=== PATIENT | male | born 1950 | race Caucasian/White ===

== ENCOUNTER 2018-08-19 14:35 | Emergency (ER) | payer MEDICARE ==
[~2018-08-19] VITALS: Ht 185.4 cm; Wt 114.5 kg
[2018-08-19 14:46] VITALS: Ht 185.4 cm; Wt 114.5 kg
[2018-08-19 15:16] LABS: BASOPHILS 0.3 % (0-2); EOSINOPHILS 2.3 % (0-7); HEMATOCRIT 43.3 % (42.0-54.0); HEMOGLOBIN 14.9 g/dL (13.5-17.5); IMMATURE GRANULOCYTES 0.3 % (0-5); LYMPHOCYTES 30.2 % (15-50); MCH 31.2 pg (26.0-34.0); MCHC 34.4 g/dL (31.0-37.0); MCV 90.6 fL (80.0-100.0); MEAN PLATELET VOLUME 9.2 fL (7.4-10.4); MONOCYTES 9.6 % (2-11); NEUTROPHILS 57.3 % (40-80); PLATELET COUNT 246 10x3/uL (130-400); RBC 4.78 10x6/uL (4.20-6.10); RDW 13.9 % (11.5-14.5); WBC 8.9 10x3/uL (4.8-10.8)
[2018-08-19 15:34] LABS: APTT 27.5 SECONDS (22.8-39.4); INR 1.08 (0.85-1.17); PROTIME 13.5 SECONDS (11.6-15.0)
[2018-08-19 15:36] LABS: ALBUMIN 3.2 g/dL (3.4-5.0); ALKALINE PHOSPHATASE 122 U/L (46-116); ALT (SGPT) 99 U/L (10-68); BILIRUBIN - TOTAL 0.35 mg/dL (0.2-1.3); CALC OSMOLALITY 284 mosm/kg (275-300); CALCIUM 8.9 mg/dL (8.5-10.1); CARBON DIOXIDE 27.6 mmol/L (21.0-32.0); CHLORIDE - SERUM 106 mmol/L (98-107); CREATININE - SERUM 0.8 mg/dL (0.6-1.3); GLUCOSE 110 mg/dL (74-106); SODIUM 141 mmol/L (136-145); UREA NITROGEN 22 mg/dL (7-18); eGFR NON AFRICAN AMERICAN > 90 mL/min (90-120)
[2018-08-19 15:50] LABS: AMYLASE - SERUM 63 U/L (25-115); CKMB 0.6 U/L (0.0-3.6); CREATINE KINASE 57 UL (21-232); LIPASE 228 U/L (73-393); MAGNESIUM - SERUM 1.9 mg/dL (1.8-2.4); TROPONIN-I < 0.017 ng/mL (0.000-0.060)
[2018-08-19] MEDS ORDERED: HYDROCODON-ACE1 EAC7 PO (17:03)
[2018-08-19 17:36] VITALS: BP 120/66
[2018-08-21 07:41] VITALS: Ht 185.4 cm; Wt 114.5 kg
== END 2018-08-19 17:36 | disposition home or self-care (01) ==
LOC: D.ER 14:35
PROVIDERS: Family Medicine
DX: K80.20 Calculus of gallbladder without cholecystitis without obstruction (principal); K21.9 Gastro-esophageal reflux disease without esophagitis

== ENCOUNTER → 2018-08-20 09:41 | Outpatient (CLI) | payer MEDICARE, OTHER ==
[2018-08-19 14:46] VITALS: BMI 33.3
[~2018-08-20 09:41] MED LIST: HYDROCODON-ACE1 EAC7 PO; IBUPROFEN800 MG PO; ROBAXIN500 MG PO; TESSALON PERLE100 MG PO
[2018-08-21 07:41] VITALS: BMI 33.3
== END | disposition home or self-care (01) ==
LOC: D.NM 09:41
PROVIDERS: ATTEND Surgery
DX: R10.13 Epigastric pain (principal)

== ENCOUNTER 2018-08-21 06:32 | Day surgery (SDC) | payer MEDICARE, OTHER ==
[~2018-08-21] VITALS: Ht 185.4 cm; Wt 114.3 kg
[~2018-08-21 06:32] MED LIST changes: -IBUPROFEN800 MG PO; -ROBAXIN500 MG PO; -TESSALON PERLE100 MG PO
[2018-08-21] MEDS ORDERED: IBUPROFEN800 MG PO (07:25)
[2018-08-21] MEDS ORDERED: TESSALON PERLE100 MG PO (07:26)
[2018-08-21] MEDS ORDERED: ROBAXIN500 MG PO (07:26)
[2018-08-21 07:41] VITALS: BP 124/67; Ht 185.4 cm; Wt 114.3 kg
[2018-08-21] MEDS ORDERED: HYDROCODON-ACE1 EAC7 PO (10:18)
--- NOTE | 2018-08-21 14:26 | NUR ---
1345 PT OFF O2 SAT 96% ON RA. PAIN EASING. DRINKING FLUIDS. ICE PACK TO INCISION LINE RIGHT SIDE. DRESSINGS CLEAN DRY AND INTACT
--- NOTE | 2018-08-21 14:27 | NUR ---
PT REQUESTED TO 3PM
--- NOTE | 2018-08-21 15:23 | NUR ---
PT ASSISTED UP TO BATHROOM TO URINATE AND URINATED STEADY STREAM SEVERAL TIMES. ASSISTED BACK TO BED. IV REMOVED 0643
--- NOTE | 2018-08-21 15:42 | NUR ---
IV REMOVED PRESSURE HELD. AT 1540.
--- NOTE | 2018-08-21 16:50 | NUR ---
1615 SEROUS DRAINAGE NOTED ON PTS SHIRT. INCISION UPPER MID ABDOMINAL REINFORCED WITH A 2X2 AND PAPER TAPE. INSTRUCTIONS GIVEN AND PT D/C HOME
== END 2018-08-21 16:30 | disposition home or self-care (01) ==
LOC: D.OPS 06:32 → D.PAN 08:45 → D.OPS 13:15
PROVIDERS: ATTEND Surgery
DX: K80.10 Calculus of gallbladder with chronic cholecystitis without obstruction (principal); Z01.812 Encounter for preprocedural laboratory examination